=== PATIENT | female | born 1980 | race Caucasian/White ===

== ENCOUNTER 2017-01-13 22:42 | Observation (INO) | payer MEDICAID, OTHER ==
[2017-01-13] MEDS ORDERED: NS 0.9% 1000 ML* 2,000 ML IV ONE (23:02)
[2017-01-13 23:17] LABS: Hematocrit 36 % (35-47); Mean Corpuscular HGB Conc 34 g/dl (31-36); Mean Corpuscular Hemoglobin 30 pg (27-31); Mean Corpuscular Volume 89 fL (80-97); Mean Platelet Volume 9 um3 (7.4-10.4); Red Blood Count 4.01 10^6/ul (4.0-5.4); Red Cell Distribution Width 12 % (10.5-15)
[2017-01-13 23:18] LABS: Comments Flag Yes
[2017-01-13 23:34] LABS: Albumin 4.2 g/dL (3.2-5.2); BUN/Creatinine Ratio 13.7 (8-20); Calcium 9.3 mg/dL (8.6-10.3); EGFR Non-African American 90.2 (>60); Globulin 2.5 g/dL (2-4); Potassium 3.2 mmol/L (3.5-5.0); Total Bilirubin 0.3 mg/dL (0.2-1.0); Total Protein 6.7 g/dL (6.4-8.9)
[2017-01-13] MEDS ORDERED: fentaNYL* 50 MCG/ML 2 ML VIAL (100 MCG VIAL) IV SLOW PU ONE (23:42)
[2017-01-13] MEDS ORDERED: Ondansetron INJ* 2 MG/ML VIAL IV ONE (23:43)
[2017-01-14] MEDS ORDERED: fentaNYL* 50 MCG/ML 2 ML VIAL (100 MCG VIAL) IV SLOW PU ONE (00:07)
[2017-01-14] MEDS ORDERED: Metoclopramide IV* 5 MG/ML 2 ML VIAL IV SLOW PU ONE (00:51)
[2017-01-14] MEDS ORDERED: Lidocaine 2% PF * 5 ML VIAL ONE (01:35)
[2017-01-14] MEDS ORDERED: Propofol* 10 MG/ML 20 ML BTL IV PUSH ONE (01:35)
[2017-01-14] MEDS ORDERED: fentaNYL* 50 MCG/ML 2 ML VIAL (100 MCG VIAL) ONE ×4 (01:37→03:42)
[2017-01-14] MEDS ORDERED: Bupivacaine 0.25% SDV* 30 ML ONE (01:38)
[2017-01-14] MEDS ORDERED: Sodium Citrate/Citric Acid* 15 ML UDC ONE (01:41)
[2017-01-14] MEDS ORDERED: Succinylcholine* 20 MG/ML 10 ML VIAL ONE (02:03)
[2017-01-14] MEDS ORDERED: Rocuronium* 10 MG/ML VIAL ONE (02:19)
[2017-01-14] MEDS ORDERED: Phenylephrine IV* 40 MCG/ML 10 ML SYRINGE ONE (02:29)
[2017-01-14] MEDS ORDERED: oxyCODONE/Acetamin 5/325 MG* TAB PO PRN ×2 (02:36→03:39)
[2017-01-14] MEDS ORDERED: Morphine INJ* 2 MG/ML 1 ML CARPUJECT IV PRN (02:36)
[2017-01-14] MEDS ORDERED: PROCHLORPERAZINE INJ 5 MG/ML 2 ML VIAL IV PRN (02:36)
[2017-01-14] MEDS: fentaNYL* 50 MCG/ML 2 ML VIAL (100 MCG VIAL) IV PRN ×2 (03:43→03:54)
[2017-01-14] MEDS ORDERED: Ketorolac INJ* 30 MG/ML 1 ML VIAL IV PUSH ONE (04:15)
[2017-01-14 07:21] LABS: Hematocrit 23 % (35-47); Hemoglobin 7.9 g/dl (12.0-16.0); Mean Corpuscular HGB Conc 35 g/dl (31-36); Mean Corpuscular Hemoglobin 31 pg (27-31); Mean Corpuscular Volume 89 fL (80-97); Mean Platelet Volume 9 um3 (7.4-10.4); Red Blood Count 2.58 10^6/ul (4.0-5.4); Red Cell Distribution Width 12 % (10.5-15); White Blood Count 9.5 10^3/ul (3.5-10.8)
--- NOTE | 2017-01-14 07:53 | RAD ---
HISTORY: Acute abdominal pain in a female COMPARISONS: None TECHNIQUE: Multiple transverse and longitudinal ultrasound images were obtained of the pelvis using grayscale, color flow, spectral and M-mode sonographic imaging. FINDINGS: UTERUS: The uterus is normal in shape, size, contour, and echotexture measuring 6.7 x 3.0 x 3.7 cm. The endometrial stripe measures 8 mm. GESTATION: There is no intrauterine gestation, gestational sac or other products of conception identified within the endometrium. CUL-DE-SAC: In the left adnexa there is a heterogeneously echogenic and minimally vascular collection measuring approximately 8 x 4.2 x 6.3 cm. Within and adjacent to this collection the left ovary is identified measuring 2.6 x 1.7 cm. The right ovary measures 2.6 x 1.6 x 2.4 cm. IMPRESSION: No live intrauterine gestation is identified in the setting of a positive beta-hCG. There is an echogenic mass in the right adnexa surrounding and adjacent to the left ovary which is most concerning for ruptured ectopic . Urgent gynecologic evaluation is advised.
[2017-01-14] MEDS: oxyCODONE/Acetamin 5/325 MG* TAB PO PRN ×2 (08:51→12:53)
[2017-01-14] MEDS ORDERED: Influenza VAC *QUAD* 2016-17* 0.5 ML SYRINGE IM ONE (09:00)
[2017-01-14 14:34] VITALS: BP 92/49
--- NOTE | 2017-01-26 13:17 | OP ---
DATE OF OPERATION: 01/14/17 - ROOM #334 DATE OF : 80 SURGEON: Nga Ac MD RIGHT OF WAY APPRAISER: Essence Castro MD ANESTHESIOLOGIST: Dr. Bernal. ANESTHESIA: General endotracheal. PRE-OP DIAGNOSIS: Suspected right ectopic with hemoperitoneum. POST-OP DIAGNOSIS: Left ruptured ectopic and hemoperitoneum. OPERATIVE PROCEDURE: Operative laparoscopy with evacuation of hemoperitoneum and left salpingectomy with ectopic . ESTIMATED BLOOD LOSS: 900 cc, largely lost preoperatively into the abdomen. URINE OUTPUT: 300 cc. IV FLUIDS: 2300 cc lactated Ringer's. MATERIALS TO LAB: Left fallopian tube with ectopic . INDICATIONS: This patient was a 36-year-old 2, para 1-0-0-1, with a last menstrual period of about 12/11/16. This patient presented to the emergency room [facility] with complaint of acute onset of severe lower abdominal pain primarily on the right side radiating to her back which started at about 10 o'clock at night. She presented to the hospital at about 11 o'clock. The patient had had a positive home test over a week before and then subsequently had vaginal bleeding for about 3 days, at which point, she thought that she had already experienced a miscarriage. The patient did not have any further issues until [facility], which was over a week later. On presentation, the patient also had lightheadedness and experienced a near syncopal episode. She did appear improved with IV fluids, but had persistent, approximately 8/10, lower abdominal pain. Ultrasound which was performed in the emergency department noted a moderate amount of fluid within the pelvis and a complex structure, which seemed to be likely ectopic on the right side, which was also the most significant area of pain. Left side also had heterogeneous material present. HCG was 2608. The patient was extensively counseled regarding the findings and I recommended an urgent laparoscopic evaluation and treatment considering the apparent findings of a ruptured ectopic with a moderate amount of blood within the abdomen. The patient agreed with this plan. She was extensively counseled and consent was signed. She understood we would likely remove a fallopian tube, possibly an ovary if necessary. FINDINGS: Copious amount of liquid and clotted blood in the abdomen and pelvis. After extensive evacuation of the blood, an ectopic was found in the left fallopian tube which was largely hemostatic already. The tube was significantly dilated and purple. The left ovary appeared normal. The right ovary and fallopian tube appeared normal and the uterus appeared normal. COMPLICATIONS: None. DESCRIPTION OF PROCEDURE: The risks, benefits, and alternatives were described to the patient, and informed consent was obtained. The patient was taken to the operating room with IV running, where general anesthesia was induced and found to be adequate. The patient was prepped and draped in the normal sterile fashion in the low lithotomy position in [facility]. A time-out was performed. A Samuel catheter was placed. A bivalved speculum was placed in the vagina and a Hulka tenaculum was placed in the cervix for uterine manipulation. The speculum was then removed and attention was returned to the abdomen. Marcaine 0.25% was then injected into the umbilicus. An approximately 5 mm incision was made in the umbilicus using the scalpel. Penetrating towel clamps were placed in the skin on both sides of the umbilicus to elevate the skin. A 5-mm bladeless trocar was then inserted through the incision and into the peritoneal cavity with the laparoscope in place. The abdomen was then insufflated with carbon dioxide gas to a maximum pressure of 15 mmHg. Marcaine 0.25% was then injected into the right and left lower quadrants as well. A 12 mm incision was made on the left side and a 5 mm incision was made on the right side. Corresponding bladeless trocars were placed into both of these sites as well. The 10 mm suction evacuator was used then to evacuate as much blood and clot as possible. This was done without placing the patient in Trendelenburg initially to avoid spreading the blood throughout the upper abdomen. Approximately 500 cc of blood was evacuated initially. The patient was then placed into Trendelenburg so that the bowel and omentum could be swept out of the pelvis better and for better visualization. An additional 300 to 400 cc of blood and clot were then evacuated from the pelvis as well. Once the pelvis was fairly clean, we were able to easily visualize the markedly dilated and ruptured left fallopian tube. A LigaSure was then obtained and it was then used to coagulate and transect the distal fallopian tube from the ovary. The remainder of the mesosalpinx was then also coagulated and transected using the LigaSure. The fallopian tube was then coagulated and transected near the cornua and completely amputated. A 5-mm EndoCatch bag was then placed through the 12-mm trocar and the fallopian tube was placed into the bag. This was able to be removed through the trocar site without difficulty. Additional copious irrigation with warm saline was performed, and all blood was removed as much as possible. At that time, there was excellent hemostasis present. A Weck closure instrument was used to close the 12-mm fascial site using 0 Polysorb. The patient was then returned to a flat position and the gas was allowed to escape from the abdomen completely. The right and left lower quadrant incisions were reapproximated using 4- 0 Monocryl in a subcuticular stitch, and all 3 incisions were covered with DermaFlex skin adhesive. The Hulka tenaculum and Samuel catheter were removed, and the patient was returned to the supine position. The patient tolerated the procedure well. Sponge, lap, and needle counts were correct x2. [id number]/[facility] #: [id number] MTDD
--- NOTE | 2017-01-29 20:47 | ED ---
Syd Louis Anna, scribed for Regulo Miller MD on 01/13/17 at 2312 . Abdominal Pain/Female - HPI Summary HPI Summary: Patient is a 36 y/o female coming to [facility] presenting with sudden onset of repeated vomiting that began this evening at 10:00. She also experienced sudden onset of constant, diffuse abdominal pain of intensity 9/10. She was at rest, sitting and talking, at onset of symptoms. She was dizzy, but this has resolved. She has chills. She denies CP, vaginal bleeding today, dysuria, hematuria, burning with urination. The patient reports having a recent miscarriage with bleeding last week. She had two positive tests 2016 and experienced vaginal bleeding in the days to follow. LNMP was 2016. No previous surgeries. - History of Current Complaint Chief Complaint: EDOBProblems Stated Complaint: ABD PAIN/VOMITING Hx Obtained From: Patient, Family/Slate Mixer - accompanied by Onset/Duration: Sudden Onset Pain Intensity: 10 Allergies/Adverse Reactions: Allergies Allergy/AdvReac Type Severity Reaction Status Date / Time No Known Drug Allergy Allergy SEE Verified 05/16/15 08:53 PMH/Surg Hx/FS Hx/Imm Hx Previously Healthy: Yes - Gout, resolved Psychiatric History: Reports: Hx Depression - no meds Infectious Disease History: No Infectious Disease History: Denies: Traveled Outside the [place] in Last 30 Days - Family History Known Family History: Negative: Cardiac Disease - Social History Lives: With Family Alcohol Use: Occasionally Substance Use Type: Reports: None Smoking Status (MU): Never Smoked Tobacco Review of Systems Negative: Chest Pain Positive: Abdominal Pain, Vomiting Positive: other - Vaginal bleeding one week ago. Negative: dysuria, hematuria Negative: Myalgia, Edema Negative: Rash Neurological: Other - Dizziness, since resolved All Other Systems Reviewed And Are Negative: Yes Physical Exam - Summary Physical Exam Summary: Constitutional: Well-developed, Well-nourished. Alert. Diaphoretic. Skin: Warm, Dry HENT: Normocephalic; Atraumatic Eyes: Conjunctiva normal Neck: Musculoskeletal ROM normal neck. (-) JVD, (-) Stridor, (-) Tracheal deviation Cardio: Rhythm regular, rate normal, Heart sounds normal; Intact distal pulses; The pedal pulses are 2+ and symmetric. Radial pulses are 2+ and symmetric. ~(-) Murmur Pulmonary/Chest wall: Effort normal. (-) Respiratory distress, (-) Wheezes, (-) Rales Abd: Soft, Suprapubic and RLQ tenderness with rebound and guarding Musculoskeletal: (-) Edema. Extremities cool to touch. Lymph: (-) Cervical adenopathy Neuro: Alert, Oriented x3 Psych: Mood and affect Normal Triage Information Reviewed: Yes Vital Signs On Initial Exam: Initial Vitals Temp Pulse Resp BP Pulse Ox 98 F 81 20 52/42 100 01/13/17 22:56 01/13/17 22:56 01/13/17 22:56 01/13/17 22:56 01/13/17 22:56 Vital Signs Reviewed: Yes Diagnostics - Vital Signs Vital Signs Temp Pulse Resp BP Pulse Ox 01/13/17 22:56 98 F 81 20 52/42 100 - Laboratory Result Diagrams: 01/13/17 23:00 01/13/17 23:00 Lab Statement: Any lab studies that have been ordered have been reviewed, and results considered in the medical decision making process. - Ultrasound No standard instances Ultrasound Interpretation: Positive (See Comments) Ultrasound Interpretation Completed By: Radiologist - IMPRESSION: Suspected ruptured left adnexal ectopic with blood clot in the pelvis and in the abdomen. Urgent gynecologic/surgical consultation is recommended. Abdominal Pain Fem Course/Dx - Course Course Of Treatment: Patient is a 36 y/o female coming to [facility] presenting with sudden onset of repeated vomiting that began this evening at 10:00. She also experienced sudden onset of constant, diffuse abdominal pain of intensity 9/10. She was at rest, sitting and talking, at onset of symptoms. She was dizzy, but this has resolved. She has chills. She denies CP, vaginal bleeding today, dysuria, hematuria, burning with urination. The patient reports having a recent miscarriage with bleeding last week. She had two positive tests 2016 and experienced vaginal bleeding in the days to follow. LNMP was 2016. No previous surgeries. Discussed care with Dr. Ac (OBGYN). Labs reveal Beta HCG level of 2608 and WBC of 12.0. US reveals suspected ruptured left adnexal ectopic with blood clot in the pelvis and in the abdomen. Patient will be admitted directly to the OR. - Diagnoses Provider Diagnoses: Ruptured ectopic - Provider Notifications Discussed Care Of Patient With: Dr. Ac (OBGYN) at 2305. Notified of high likelihood of ruptured ectopic. Finding of shock. Recommended emergent US and immediate call back. Dr. Ac (OBGYN) at 00:12. Notified of free fluid. Coming to see patient. Agrees to admit patient directly to the OR. - Critical Care Time Critical Care Time: 30-74 min - 45 minutes Discharge - Discharge Plan Condition: Guarded Disposition: ADMITTED TO [facility] documentation as recorded by the Syd ugalde Anna accurately reflects the service I personally performed and the decisions made by , Regulo Miller MD.
--- NOTE | 2017-11-02 01:56 | DS ---
DISCHARGE SUMMARY: DATE OF ADMISSION: 01/14/17 DATE OF DISCHARGE: 01/14/17 HISTORY OF PRESENT ILLNESS: The patient was admitted by Dr. Ac on 01/14/17 and had a positive hCG and had a syncopal episode and was found to have an ectopic . The patient was taken to the operating room by Dr. Ac; and , according to the operative note, had a left ruptured ectopic and a hemoperitoneum. The operative procedure performed was evacuation of hemoperitoneum and a left salpingectomy with evidence of an ectopic . The patient on 01/14/17 on postoperative 0 to [address] Steele myself and was discharged to home in stable condition. She is to eat iron right foods for hemoglobin at 7.9, and she is to follow up in the office for a recheck in one week's time. The patient verbalizes understanding of this discharge instructions and was discharged to home in stable condition. Final pathology on that specimen revealed ruptured ectopic gestation with hemorrhage benign left fallopian tube. [id number]/[facility] #: [id number]
== END 2017-01-14 14:35 | disposition home or self-care (01) ==
LOC: ED 22:42 → SSU 01-14 01:07
PROVIDERS: ADMIT Internal Medicine; ATTEND Obstetrics & Gynecology
PROC: 0UT64ZZ Resection of Left Fallopian Tube, Percutaneous Endoscopic Approach (ICD-10-PCS; 2017-01-14)
PROC: 10T24ZZ Resection of Products of Conception, Ectopic, Percutaneous Endoscopic Approach (ICD-10-PCS; principal; 2017-01-14 01:22)
DX: O00.10 Tubal pregnancy without intrauterine pregnancy (principal); O08.1 Delayed or excessive hemorrhage following ectopic and molar pregnancy; Z23 Encounter for immunization
CPT/HCPCS: 36415; 76817; 80053; 83605; 84702; 85025; 85027; 85610; 85730; 86850; 86900; 86901; 86922; 87040; 88305; 90471; 90686; 96374; 99283; A9270-GY; G0008; G0378; J0330; J1885; J2405; J2704; J2765; J3010

== ENCOUNTER 2017-09-05 15:46 | Emergency (ER) | payer MEDICAID, OTHER ==
[2017-09-05 16:06] VITALS: BP 132/77
--- NOTE | 2017-09-05 17:17 | ED ---
- HPI Summary HPI Summary: 37 female presents to ED with complaints of vaginal bleeding and cramping that began 08/28/17. Patient was diagnosed by OBGYN midwives on 08/24/17 that she had no heart rate, and was expecting a miscarriage. Had an "Event" with increased bleeding, passing clots and pain on Tuesday09/03/17. 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 Patient states her pain was an 8/10 however has decreased to a 3/10 currently. 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 Admits to feeling tired and weak however denies dizziness and lightheadedness. Has been following up with OBGYN. Has also been eating molasses to replenish iron due to blood loss. Denies any other abdominal pain, nausea or vomiting. No genitalia or urinary symptoms. Normal bowel movements. No other complaints at this time. Was told by OBGYN to come to ER due to having second "Event" of heaving bleeding/cramping. No PMHx other than gout. . Has has two miscarriages. First was live normal . No alcohol or drug use. LMP June 24. States she has been soaking a thick "depends " pad in 3 hours, today only. Rest of days have been light bleeding, other than Tuesday and today. - History of Current Complaint Chief Complaint: EDOBProblems Stated Complaint: 9 WKS PREG/BLEEDING/CRAMPING Time Seen by Provider: 09/05/17 17:16 Hx Obtained From: Patient Onset/Duration: Started Days Ago, Still Present Timing: Constant Severity: Severe Current Severity: Mild Pain Intensity: 3 Location of Pain: Suprapubic Character: Cramping Aggravating Factors: Movement Alleviating Factors: Medication - advil Associated Signs and Symptoms: Positive: Back Pain - low back pain, Vaginal Bleeding or Discharge - Assessment Hx Now: No - miscarriage Hx : 3 Hx Para: 1 SAB: 0 IEA: 0 History of Ectopic : No Hx Pelvic Inflammatory Disease: No Vaginal Bleeding Amount: Large Hx Last Menstrual Period: 06/24/17 Hx Hysterectomy: No History of STI/STD: No - Additional Pertinent History Primary Care Physician: [id number] Maternal Blood Type and Rh: B Positive - Allergies/Home Medications Allergies/Adverse Reactions: Allergies Allergy/AdvReac Type Severity Reaction Status Date / Time No Known Drug Allergy Allergy SEE Verified 05/16/15 08:53 PMH/Surg Hx/FS Hx/Imm Hx Endocrine/Hematology History: Denies: Hx Diabetes Cardiovascular History: Denies: Hx Hypertension Respiratory History: Denies: Hx Asthma History: Reports: Other Problems/Disorders - pid Musculoskeletal History: Reports: Hx Gout Sensory History: Reports: Hx Contacts or Glasses Opthamlomology History: Reports: Hx Contacts or Glasses Psychiatric History: Reports: Hx Depression - no meds - Surgical History Surgery Procedure, Year, and Place: 01/13/17 salpingectomy with evacuation of hematoma Hx Anesthesia Reactions: No - Immunization History Immunizations Up to Date: Yes Infectious Disease History: Yes Infectious Disease History: Denies: Traveled Outside the [place] in Last 30 Days - Family History Known Family History: Negative: Cardiac Disease - Social History Alcohol Use: Occasionally Substance Use Type: Reports: None Smoking Status (MU): Never Smoked Tobacco Have You Smoked in the Last Year: No Review of Systems Constitutional: Negative Cardiovascular: Negative Respiratory: Negative Positive: Abdominal Pain Positive: other - vaginal bleeding, miscarriage Neurological: Negative All Other Systems Reviewed And Are Negative: Yes Physical Exam - Physical Exam Triage Information Reviewed: Yes Vital Signs On Initial Exam: Temp: 98.7 BP: 132/77 HR: 73 O2: 100 Resp: 17 Vital Signs Reviewed: Yes Appearance: Positive: Well-Appearing, No Pain Distress, Well-Nourished Skin: Positive: Warm, Skin Color Reflects Adequate Perfusion, Dry. Negative: Cold, Numb, Tender, Cyanosis @, Pale, Erythema @ Head/Face: Positive: Normal Head/Face Inspection Eyes: Positive: EOMI, HILARIO, Conjunctiva Clear ENT: Positive: Hearing grossly normal, Pharynx normal Neck: Positive: Supple, Nontender Respiratory/Lung Sounds: Positive: Clear to Auscultation, Breath Sounds Present. Negative: Rales, Rhonchi, Wheezes Cardiovascular: Positive: Normal, RRR, Pulses are Symmetrical in both Upper and Lower Extremities. Negative: Murmur, Rub Abdomen Description: Positive: No Organomegaly, Soft, Other: - some mild discomfort on palpation over bladder/uterus suprapubic area.. Negative: Bruit, CVA Tenderness (R), CVA Tenderness (L), Distended, Guarding, Pulsatile Mass Bowel Sounds: Positive: Present Musculoskeletal: Positive: Normal, Strength/ROM Intact Neurological: Positive: Normal, Sensory/Motor Intact, Alert, Oriented to Person Place, Time, NV Bundle Intact Distally, Normal Gait Diagnostics - Vital Signs Vital Signs Temp Pulse Resp BP Pulse Ox 09/05/17 16:03 98.8 F 73 17 132/77 100 - Laboratory Result Diagrams: 09/05/17 17:29 09/05/17 17:29 Lab Statement: Any lab studies that have been ordered have been reviewed, and results considered in the medical decision making process. - Ultrasound No standard instances Ultrasound Interpretation: No Acute Changes - 1. No IUP visualized. No suspicious adnexal region lesions. Ectopic is not entirely excluded in absence of a documented IUP. Close clinical, beta-HCG, and sonographic follow -up suggested as deemed appropriate. 2. Low suspicion 1.2 cm low suspicion lesion within the RIGHT ovary most likely represents an involuting hemorrhagic cyst or corpus luteum. 3. No significant change in 1.5 cm simple appearing RIGHT paraovarian cyst. Ultrasound Interpretation Completed By: Radiologist Course/Dx - Course Course Of Treatment: refused fluids as she had to get back to her child. patient was comfortable and denied pain management while in ED. Labs unremarkable besides slight anemia, not of emergent concern. Goes along with symptoms and vaginal bleeding. US obtained and negative for concerning etiology. No retained parts or visible ectopic currently on transvaginal US. No other complaints. 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 Pelvic exam appeared as expected for miscarriage diagnosis. Appears to just be experiencing miscarriage. HCG continuing to decrease as expected. Follow up with OBGYN at appointment tomorrow and tuesday. Also spoke with Dr Jerry about patient who agrees. Continue fluids, iron rich foods and iron supplement while bleeding persists. Aware of worsening signs and symptoms to watch out for and to return immediately if occur. Understands and agrees with plan. All questions answered. No other emergent concern at this time. Patient is B Positive blood type. - Differential Diagnosis/HQI/PQRI: Spontaneous , Early , Rh Incompatibility, UTI, Vaginal Bleeding - Diagnoses Provider Diagnoses: Miscarriage - Provider Notifications Discussed Care Of Patient With: Dr Jerry Discharge - Discharge Plan Condition: Stable Disposition: HOME Patient Education Materials: Miscarriage (ED) Referrals: Emigdio GAGE,Adeline Siddiqui [Primary Care Provider] - Essence Castro MD [Medical Doctor] - Additional Instructions: Please follow up with your OBGYN for close follow up, repeat US and labs. Any new, worsening or persisting symptoms please seek medical attention and return to ED. Drink plenty of fluids, continue iron rich foods. Suggest taking iron supplement while bleeding lasts. If you start feeling lightheaded, dizzy or faint please come straight to the ED. Advil/tylenol for pain and discomfort. Continue use of pads for bleeding. Follow up PCP. Physical Exam - Physical Exam Pelvic Exam: external exam normal, bimanual exam normal - tender, no cerv. motion tender, no masses, active bleeding, blood, other - difficult to see complete cervix due to blood, does not appear to be hemorrhaging, some small clots noted and removed
[2017-09-05 17:40] LABS: Hematocrit 33 % (35-47); Hemoglobin 11.4 g/dl (12.0-16.0); Mean Corpuscular HGB Conc 35 g/dl (31-36); Mean Corpuscular Hemoglobin 30 pg (27-31); Mean Corpuscular Volume 85 fL (80-97); Mean Platelet Volume 8 um3 (7.4-10.4); Red Blood Count 3.82 10^6/ul (4.0-5.4); Red Cell Distribution Width 13 % (10.5-15); White Blood Count 8.2 10^3/ul (3.5-10.8)
[2017-09-05 17:54] LABS: Albumin 3.8 g/dL (3.2-5.2); BUN/Creatinine Ratio 13.6 (8-20); Calcium 8.7 mg/dL (8.6-10.3); EGFR African American 147.5 (>60); EGFR Non-African American 114.7 (>60); Globulin 2.6 g/dL (2-4); Potassium 3.7 mmol/L (3.5-5.0); Total Bilirubin 0.3 mg/dL (0.2-1.0); Total Protein 6.4 g/dL (6.4-8.9)
[2017-09-05] MEDS ORDERED: NS 0.9% 1000 ML* 2,000 ML IV ONE (18:31)
--- NOTE | 2017-09-05 18:33 | RAD ---
Indication: Bleeding since August 28, 2017 bilateral lower abdominal pain. 10 weeks gestation based on June 24, 2017 LMP. Comparison: May 06, 2017 ultrasound. Technique: Transvaginal obstetrical ultrasound. Report: 12 mm endometrium. No IUP visualized. Small volume of fluid in the endocervical canal. 2. 0.3 x 1.7 x 2.1 cm RIGHT ovary with documented vascular flow. 1.0 x 0.6 x 1.2 cm low suspicion heterogeneous echogenicity region in the RIGHT ovary with some convex inward margins is most consistent with an involuting hemorrhagic cyst or potentially corpus luteum. 1.5 x 0.8 x 1.3 cm unilocular anechoic RIGHT paraovarian cyst is grossly unchanged. 2.4 x 1.1 x 1.4 cm LEFT ovary with documented vascular flow is unremarkable. Negative for free pelvic fluid. IMPRESSION: 1. No IUP visualized. No suspicious adnexal region lesions. Ectopic is not entirely excluded in absence of a documented IUP. Close clinical, beta-HCG, and sonographic follow-up suggested as deemed appropriate. 2. Low suspicion 1.2 cm low suspicion lesion within the RIGHT ovary most likely represents an involuting hemorrhagic cyst or corpus luteum. 3. No significant change in 1.5 cm simple appearing RIGHT paraovarian cyst.
== END 2017-09-05 19:56 | disposition home or self-care (01) ==
LOC: ED 15:46
DX: O03.9 Complete or unspecified spontaneous abortion without complication (principal); R10.9 Unspecified abdominal pain
CPT/HCPCS: 36415; 76817; 80053; 83605; 84702; 85025; 99282

== ENCOUNTER 2018-09-25 03:25 | Inpatient (IN) | payer OTHER ==
[2018-09-25] MEDS ORDERED: Witch Hazel PAD* JAR TOPICAL PRN (05:04)
[2018-09-25] MEDS ORDERED: Glycerin ADULT SUPP PR PRN (05:04)
--- NOTE | 2018-09-25 05:13 | HP ---
General Information - General Information Maternal Age: 38 Grav: 4 Para: 1 SAB: 2 IEA: 0 Estimated Due Date: 09/24/18 Determined By: LMP Maternal Blood Type and Rh: B Positive - Results this Serology/RPR Result: Non-Reactive Rubella Result: Immune HBsAg Result: Negative HIV Result: Negative GBS Culture Result: Negative Past Medical History Delivery History: Hx Uncomplicated Vaginal Delivery Pertinent Past Medical History: See Records - depression, gout, PID x2 , CF carrier, thyroid cyst Pertinent Past Surgical History: See Records - wisdom tooth extraction , left salpingectomy with ectopic Pertinent Family History: See Records - Antepartal Records Antepartal Records: Reviewed, Complicated by: - maternal age 38, pt and FOB both CF carriers, baby is carrier Review of Systems Constitutional: Uncomfortable CV Complaint: No Respiratory: Shortness of Breath: No Gastrointestinal: No Nausea/Vomiting, Normal Bowel Movement Genitourinary: No Dysuria, No Bleeding, No Leaking Fluid Musculoskeletal: No Epigastric Pain, Contractions, Pressure Neurological: No Headache, No Visual Changes Movement: Normal Exam Allergies/Adverse Reactions: Allergies latex Allergy (Verified 09/25/18 03:47) Rash And Itching MS No Known Drug Allergy [No Known Drug Allergy] Allergy (Verified 12/26/17 11: 09) SEE Vital Signs 09/25/18 03:48 Temperature 98.1 F Pulse Rate 86 Respiratory 22 Rate Blood Pressure 140/84 (mmHg) - Measurements Height: 5 ft 7 in Weight: 85.729 kg Weight in lbs: 189.039227 Body Mass Index (BMI): 29.6 Pre- Weight: 73.028 kg Weight Gained This : 28 lbs and 0 ozs - Exam Breast: Breast Exam Deferred CVA: No CVA Tenderness Extremities: No Edema Heart: Normal Rhythm/Heart Sounds HEENT: No Significant Findings Lungs: Clear Bilaterally Rectal: Rectal Exam Deferred Thyroid: No Thyromegaly - Abdominal Exam Abdomen Exam: Non-Tender, Fundal Height Consistent with Dates - Ultrasound/Biophysical Profile Ultrasound Status: Not Done Targeted Exam Findings See L&D Outpatient Visit Provider Note for Findings: N/A Estimated Weight: 8# Cervical Exam: Anterior Lip - on arrival Effacement: 100% Station: +1 Presenting Part: Vertex Membrane Status: Intact Bleeding/Discharge: Bloody Show EFM Findings - External Monitor Findings Baseline Heart Rate: 135 External Monitor Findings: Accelerations Present, No Pattern of Variable or Late Decelerations, Variability Moderate, Baseline Stable Contractions: Regular, Strong, 45-90 Seconds Contraction Frequency: 3-5 minutes Assessment/Plan - Assessment 38 year old at 40 1/7 weeks gestation in active labor, anterior lip, membranes intact, with no evidence of acidemia - Plan Plan: Admit - Anticipate Vaginal Delivery Plan Comment: On arrival pt reported strong pressure. Vaginal exam showed anterior lip only. Pt had been planning on epidural, was offered nitrous as advanced dilation made it unlikely that an epidural would be possible. - Date/Time of Admission Date of Admission: 09/25/18 Time of Admission: 03:35
--- NOTE | 2018-09-25 05:30 | PROCNOTE ---
[facility] OB: Delivery Note - Delivery A Date of : 09/25/18 Time of : 04:21 [place] Sex: Female Weight at : 3.791 kg Score 1 Minute: 9 Score 5 Minutes: 9 Gestational Age in Weeks and Days at Delivery: 40 Weeks and 1 Days Delivery Method: Spontaneous Vaginal Labor: Spontaneous Did Patient attempt ?: N/A, No Previous Amniotic Fluid: Clear Estimated Blood Loss: 200 Anesthesia/Analgesia: Nitrous-Labor Delivered By: Gabbi Cespedes - Nursery Level of Nursery: Regular/Bedside - Perineum Perineal Injury: Perineal Laceration, 2nd Degree Perineal Repair: By Delivering Practioner - Events Delivery Events of Note: None Apply - Additional Delivery Notes Additional Delivery Notes: Pt arrived on Labor and Delivery experiencing strong contractions and pressure. Initial cervical exam found her to have only an anterior lip. Pt had initially planned on an epidural, but was offered nitrous oxide as appeared imminent. Preparations made for delivery. After about half an hour pt began to experience urge to push and was found to be fully dilated. Pt coached on pushing and pushed effectively with ctx. 's head delivered OA to VIVEK and shoulders followed easily with next push. with vigorous cry, FHR >100. Infant placed on maternal abdomen. After pulsation ceased, umbilical cord clamped x2 and cut by 's father. Placenta soon delivered, patricia side with trailing membranes, teased out, appear intact. Perineum examined and found to have sustained second degree laceration. After numbing with lidocaine, laceration sutured with 3-0 Rapide, resulting in good hemostasis and tissue approximation. and mother stable at this time. Anticipate normal course.
[2018-09-25] MEDS: Dibucaine 1% 28.35 GM TUBE PR PRN (05:41)
[2018-09-25] MEDS: Ibuprofen TAB* 600 MG PO PRN ×3 (05:41→17:19)
[2018-09-25] MEDS: Acetaminophen TAB* 325 MG PO PRN ×3 (08:43→20:33)
[2018-09-25] MEDS: Docusate CAP* 100 MG PO SCH ×3 (08:44→20:33)
[2018-09-25] MEDS ORDERED: Oxytocin 20 UNITS in LR* ** ENTER RATE IVPB ONE (18:00)
[2018-09-26] MEDS: Ibuprofen TAB* 600 MG PO PRN ×2 (00:02→08:18)
[2018-09-26] MEDS: Acetaminophen TAB* 325 MG PO PRN ×2 (05:00→13:22)
[2018-09-26 07:57] LABS: ABS Basophils 0.1 10^3/ul (0-0.2); ABS Eosinophils 0.2 10^3/ul (0-0.6); ABS Lymphocytes 3.3 10^3/ul (1.0-4.8); ABS Monocytes 0.6 10^3/ul (0-0.8); ABS Neutrophils 4.2 10^3/ul (1.5-7.7); ABS Nucleated RBC 0 10^3/ul; Eosinophil % 2.8 % (0-6); Hematocrit 32 % (35-47); Hemoglobin 11.1 g/dl (12.0-16.0); Lymphocyte % 39.4 % (25-47); Mean Corpuscular HGB Conc 35 g/dl (31-36); Mean Corpuscular Hemoglobin 30 pg (27-31); Mean Corpuscular Volume 86 fL (80-97); Mean Platelet Volume 8.7 um3 (7.4-10.4); Nucleated Red Blood Cells % 0.1; Platelet Count 170 10^3/ul (150-450); Red Blood Count 3.72 10^6/ul (4.00-5.40); Red Cell Distribution Width 14 % (10.5-15); White Blood Count 8.5 10^3/ul (3.5-10.8)
[2018-09-26] MEDS: Docusate CAP* 100 MG PO SCH ×2 (08:18→13:22)
[2018-09-26] MEDS ORDERED: Ferrous Gluconate TAB* 324 MG TAB PO SCH (09:00)
[2018-09-26 12:06] VITALS: BP 113/64
[2018-09-26] MEDS: Dibucaine 1% 28.35 GM TUBE PR PRN (13:22)
== END 2018-09-26 14:00 | disposition home or self-care (01) | DRG 560 ==
LOC: MCHOBOUT 03:25 → MCHOB 03:35
PROVIDERS: ADMIT Midwife; ATTEND Midwife
PROC: 10E0XZZ Delivery of Products of Conception, External Approach (ICD-10-PCS; principal; 2018-09-25)
PROC: 0KQM0ZZ Repair Perineum Muscle, Open Approach (ICD-10-PCS; 2018-09-25)
PROC: 10907ZC Drainage of Amniotic Fluid, Therapeutic from Products of Conception, Via Natural or Artificial Opening (ICD-10-PCS; 2018-09-25)
DX: O48.0 Post-term pregnancy (principal); Z37.0 Single live birth; O99.344 Other mental disorders complicating childbirth; F32.9 Major depressive disorder, single episode, unspecified; O70.1 Second degree perineal laceration during delivery; Z3A.40 40 weeks gestation of pregnancy; Z14.1 Cystic fibrosis carrier
CPT/HCPCS: 36415; 85025; A9270-GY

== ENCOUNTER 2022-02-13 07:06 | Inpatient (IN) ==
[2022-02-13 09:15] LABS: Urine Benzodiazepine Screen None Detected (None Detect); Urine Cannabinoids Screen None Detected (None Detect); Urine Opiates Screen None Detected (None Detect)
[2022-02-13 11:01] LABS: ABS Basophils 0.1 10^3/ul (0-0.2); ABS Eosinophils 0.1 10^3/ul (0-0.6); ABS Lymphocytes 2.2 10^3/ul (1.0-4.8); ABS Monocytes 0.6 10^3/ul (0-0.8); ABS Neutrophils 6.6 10^3/ul (1.5-7.7); Eosinophil % 1.1 %; Hematocrit 35 % (35-47); Hemoglobin 11.9 g/dL (12.0-16.0); Mean Corpuscular HGB Conc 34 g/dL (31-36); Mean Corpuscular Hemoglobin 30 pg (27-31); Mean Corpuscular Volume 89 fL (80-97); Mean Platelet Volume 9.8 fL (7.4-10.4); Nucleated Red Blood Cells % 0.1; Platelet Count 173 10^3/uL (150-450); Red Blood Count 3.95 10^6 /uL (3.70-4.87); Red Cell Distribution Width 13 % (10-15); White Blood Count 9.5 10^3/uL (3.5-10.8)
[2022-02-13] MEDS ORDERED: OBEPIDURAL (200 ML) 200 ML EPIDURAL ONE (12:22)
[2022-02-13] MEDS ORDERED: fentaNYL 100 mcg/2 ml 50 MCG/ML VIAL ONE (12:51)
[2022-02-13] MEDS ORDERED: Bupivacaine 0.25% SDV PF 10 ML VIAL INJ ONE (12:51)
[2022-02-13] MEDS ORDERED: diPHENhydraMINE IV 50 MG/ML 1 ml VIAL (BENADRYL) IV PRN (13:58)
[2022-02-13] MEDS ORDERED: Ondansetron 4 mg VIAL 2 MG/ML 2 ml VIAL IV PRN (13:58)
[2022-02-13] MEDS ORDERED: Metoclopramide 5 MG/ML VIAL (10 mg) IV PRN (13:58)
[2022-02-13] MEDS ORDERED: Phenylephrine 40 mcg/mL 10mL (400mcg) SYRINGE IV PUSH PRN ×2 (14:01)
[2022-02-13] MEDS ORDERED: Lactated Ringers 1000 ml BAG 500 ML IV PRN ×2 (14:01)
[2022-02-13] MEDS ORDERED: Sodium Citrate/Citric Acid LIQ 15 ML UDC PO PRN (14:01)
[2022-02-13] MEDS ORDERED: EPHEDrine (Pressors) 50 MG/ML VIAL IV PUSH PRN ×2 (14:01)
[2022-02-13] MEDS ORDERED: Lactated Ringers 1000 ml BAG 1,000 ML IV ONE (14:01)
[2022-02-13 14:19] LABS: Urine Appearance Clear; Urine Bilirubin Negative (Negative); Urine Blood 2+ (Negative); Urine Color Straw; Urine Glucose Negative (Negative); Urine Ketones Trace (Negative); Urine Nitrite Negative (Negative); Urine Protein Negative (Negative); Urine Specific Gravity 1.003 (1.002-1.030); Urine Urobilinogen Negative (Negative)
[2022-02-13 14:36] LABS: Urine Bacteria 1+ (Absent); Urine Red Blood Cell Trace(0-2/hpf) (Absent); Urine Squamous Epithelial Cell Present (Absent); Urine White Blood Cell Trace(0-5/hpf) (Absent)
[2022-02-13] MEDS ORDERED: Oxytocin in LR 20 UNITS/1,000 ML BAG IVPB ONE (14:50)
[2022-02-13] MEDS ORDERED: Lactated Ringers 1000 ml BAG 1,000 ML IV SCH ×2 (15:00→17:00)
[2022-02-13] MEDS ORDERED: OBEPIDURAL (200 ML) 200 ML EPIDURAL SCH (15:00)
[2022-02-13] MEDS ORDERED: Oxytocin in LR 20 UNITS/1,000 ML BAG IVPB SCH ×2 (15:35→16:10)
[2022-02-13] MEDS ORDERED: Dibucaine 1% OINT 28.35 GM TUBE PR PRN (16:38)
[2022-02-13] MEDS ORDERED: Witch Hazel PAD JAR TOPICAL PRN (16:38)
[2022-02-14 09:07] LABS: ABS Basophils 0.1 10^3/ul (0-0.2); ABS Eosinophils 0.1 10^3/ul (0-0.6); ABS Lymphocytes 2.3 10^3/ul (1.0-4.8); ABS Monocytes 0.8 10^3/ul (0-0.8); ABS Neutrophils 6.2 10^3/ul (1.5-7.7); Eosinophil % 1.5 %; Hematocrit 34 % (35-47); Hemoglobin 11.7 g/dL (12.0-16.0); Lymphocyte % 23.9 %; Mean Corpuscular HGB Conc 35 g/dL (31-36); Mean Corpuscular Hemoglobin 30 pg (27-31); Mean Corpuscular Volume 88 fL (80-97); Mean Platelet Volume 9.1 fL (7.4-10.4); Platelet Count 168 10^3/uL (150-450); Red Blood Count 3.86 10^6 /uL (3.70-4.87); Red Cell Distribution Width 14 % (10-15); White Blood Count 9.5 10^3/uL (3.5-10.8)
[2022-02-14 11:33] VITALS: BP 131/70
== END 2022-02-14 18:59 | disposition home or self-care (01) | DRG 560 ==
LOC: MCHOBOUT 07:06 → MCHOB 08:48
PROVIDERS: ADMIT Midwife; ATTEND Midwife